=== PATIENT | female | born 1945 ===

== ENCOUNTER → 2017-04-29 | Outpatient (CLI) | payer OTHER ==
[~2017-04-29] MED LIST: PENI-82 PO; [UNRECOGNIZED DRUG - CODE] TD
--- NOTE | 2017-04-29 09:48 | DIAGNOSTIC IMAGING REPORT ---
CHEST 2 VIEWS ROUTINE HISTORY: Short of breath. COMPARISON: None. FINDINGS: The lungs are clear. Cardiac silhouette is normal in size. No pleural effusions. No pneumothorax. IMPRESSION: No acute process. Electronically signed by: Luis Armando Evans M.D. 04/29/2017 9:47 AM Dictated Date/Time: 04/29/2017 9:44 AM
== END | disposition home or self-care (01) ==
LOC: C.RAD1850 09:28
PROVIDERS: ATTEND Internal Medicine Cardiovascular Disease
DX: Z01.810 Encounter for preprocedural cardiovascular examination (principal); Z86.79 Personal history of other diseases of the circulatory system

== ENCOUNTER 2017-08-03 10:33 | Emergency (ER) | payer OTHER ==
[~2017-08-03] VITALS: Ht 165.1 cm; Wt 74.7 kg
[2017-08-03 10:39] VITALS: TEMP 36.5; Ht 165.1 cm; Wt 74.7 kg
[2017-08-03] MEDS ORDERED: DPRSCR45 TOP (11:10)
[2017-08-03] MEDS ORDERED: LEVO75TA5 PO (11:10)
[2017-08-03] MEDS ORDERED: BISM262S7 PO (11:10)
[2017-08-03 12:18] LABS: BASO % 0.2 %; BASO ABS # 0.01 K/uL (0-0.2); EOS % 1.9 %; EOS ABS # 0.12 K/uL (0-0.5); HEMATOCRIT 40.3 % (37-47); HEMOGLOBIN 13.5 g/dL (12.0-16.0); IG# 0.01 K/uL (0.00-0.02); LYMPH % 21.3 %; LYMPH ABS # 1.35 K/uL (1.2-3.4); MEAN CELL VOLUME 90.4 fL (80-100); MEAN CORPUSCULAR HEMOGLOBIN 30.3 pg (25-34); MEAN CORPUSCULAR HGB CONC 33.5 g/dl (32-36); MEAN PLATELET VOLUME 9.6 fL (7.4-10.4); MONO % 7.6 %; MONO ABS # 0.48 K/uL (0.11-0.59); NEUT % 68.8 %; NEUT ABS # 4.37 K/uL (1.4-6.5); PLATELET COUNT 227 K/uL (130-400); RED CELL DISTRIBUTION WIDTH CV 13.3 % (11.5-14.5); WHITE BLOOD COUNT 6.34 K/uL (4.8-10.8)
[2017-08-03 12:47] LABS: ALBUMIN 3.9 gm/dl (3.4-5.0); CALCIUM 9.7 mg/dl (8.5-10.1); CREATININE 0.62 mg/dl (0.60-1.20); TOTAL PROTEIN 7.7 gm/dl (6.4-8.2)
--- NOTE | 2017-08-03 12:47 | EMERGENCY ROOM VISIT NOTE ---
History Report prepared by Aris: Peter Ugalde Under the Supervision of: Dr. Alonso Garcia M.D. First contact with patient: 10:35 Chief Complaint: RECTAL BLEEDING Stated Complaint: RECTAL BLEEDING History of Present Illness The patient is a 72 year old white female with a past medical history of pacemaker placement, pre-diabetes, appendectomy, and inguinal hernia repair who presents to the ED with a cc of persistent rectal bleeding. Patient had a colonoscopy today for her bleeding and was found to have a polyp. She had the polyp clipped at this time. She reports that her colonoscopy was concerning for possible perforation. Negative abdominal pain or nausea. The patient has a pacemaker in place to prevent decreased heart rate due to having a constant heart rate of 70 bpm despite activity. Colonoscopy performed by Dr. Candelario earlier this morning showed 6 mm polyp in sigmoid colon which was removed without complication. 20 mm polyp in rectosigmoid which pedunculated. EBL of 10 mL requiring hemostatic clips. No bleeding at the end of the procedure, but concern for possible perforation. Source of History: patient Position: other (Rectum) Quality: other (bleeding) Timing: other (persistent) Associated Symptoms: No nausea, No abdominal pain Review of Systems See HPI for pertinent positives and negatives. A total of ten systems were reviewed and were otherwise negative. Past Medical & Surgical Medical Problems: (1) Inguinal hernia (2) Pacemaker (3) Pre-diabetes Surgical Problems: (1) S/P appendectomy Family History No pertinent family history stated. Social History Smoking Status: Never Smoker Marital Status: Current/Historical Medications Scheduled Bismuth Subsalicylate (Pepto-Bismol), 1 DOSE PO UD Levothyroxine Sodium (Levothyroxine Sodium), 75 MCG PO DAILY Scheduled PRN Betamethasone Dip (Betamethasone Dipropionat), 1 APPL TOP Q2D PRN for PSORIASIS Allergies Coded Allergies: Triclosan (Unverified Adverse Reaction, Intermediate, HEADACHE, VOMITING, NAUSEA, 08/03/17) Uncoded Allergies: TETANUS DIPTHERIA AND PERTUSSIS VAC (Allergy, Mild, RASH, 12/16/13) ENVIRONMENTAL (Allergy, Unknown, SHORTNESS OF BREATH, 12/16/13) Physical Exam Vital Signs Date Time Temp Pulse Resp B/P (MAP) Pulse Ox O2 Delivery O2 Flow Rate FiO2 08/03/17 13:26 67 08/03/17 10:39 36.5 66 16 117/82 95 Room Air 08/03/17 10:38 67 Physical Exam GENERAL: Awake, alert, well-appearing, NAD HENT: Normocephalic, atraumatic. EYES: Normal conjunctiva. Sclera non-icteric. NECK: Supple. No nuchal rigidity. FROM. RESPIRATORY: CTAB, no rhonchi, wheezing, crackles CARDIAC: RRR, no MRG ABDOMEN: Soft, NTND, BS+ MSK: No chest wall TTP, no LE edema. Device in left chest. NEURO: GCS 15, CN 2-12 intact, moves all 4s on command SKIN: No rash or jaundice noted. Medical Decision & Procedures ER Provider Diagnostic Interpretation: Radiology results as stated below per my review and radiologist interpretation: ABD/PELVIS IV CONTRAST ONLY FINDINGS: Lung bases are clear. Mild fatty infiltration of liver. Liver is uniform in in terms of enhancement characteristics. Kidneys enhance uniformly. No evidence for hydronephrosis. The adrenal glands are normal. Slight increase in mesenteric density most likely of doubtful significance. No significant abdominal pelvic or inguinal adenopathy. Surgical clips in the mid sigmoid region. This is within mildly thickened region of chronic sigmoid diverticulosis. A well-defined mass or extraluminal infiltrative or collection type process is not seen. No evidence for free air or pneumatosis. Normal appendix. IMPRESSION: No acute process of the abdomen or pelvis. Specifically, no evidence for free air, extraluminal collection, or obstruction. The above report was generated using voice recognition software. It may contain grammatical, syntax or spelling errors. Electronically signed by: Alejandro Boudreaux M.D. 08/03/2017 1:17 PM Laboratory Results 08/03/17 11:55 Red Blood Count 4.46, Mean Corpuscular Volume 90.4, Mean Corpuscular Hemoglobin 30.3, Mean Corpuscular Hemoglobin Concent 33.5, Mean Platelet Volume 9.6, Neutrophils (%) (Auto) 68.8, Lymphocytes (%) (Auto) 21.3, Monocytes (%) (Auto) 7.6, Eosinophils (%) (Auto) 1.9, Basophils (%) (Auto) 0.2, Neutrophils # (Auto) 4.37, Lymphocytes # (Auto) 1.35, Monocytes # (Auto) 0.48, Eosinophils # (Auto) 0.12, Basophils # (Auto) 0.01 08/03/17 11:55 08/03/17 12:43 Test 08/03/17 11:55 08/03/17 12:43 08/03/17 13:00 White Blood Count 6.34 K/uL (4.8-10.8) Red Blood Count 4.46 M/uL (4.2-5.4) Hemoglobin 13.5 g/dL (12.0-16.0) Hematocrit 40.3 % (37-47) Mean Corpuscular Volume 90.4 fL (80-100) Mean Corpuscular Hemoglobin 30.3 pg (25-34) Mean Corpuscular Hemoglobin Concent 33.5 g/dl (32-36) Platelet Count 227 K/uL (130-400) Mean Platelet Volume 9.6 fL (7.4-10.4) Neutrophils (%) (Auto) 68.8 % Lymphocytes (%) (Auto) 21.3 % Monocytes (%) (Auto) 7.6 % Eosinophils (%) (Auto) 1.9 % Basophils (%) (Auto) 0.2 % Neutrophils # (Auto) 4.37 K/uL (1.4-6.5) Lymphocytes # (Auto) 1.35 K/uL (1.2-3.4) Monocytes # (Auto) 0.48 K/uL (0.11-0.59) Eosinophils # (Auto) 0.12 K/uL (0-0.5) Basophils # (Auto) 0.01 K/uL (0-0.2) RDW Standard Deviation 44.0 fL (36.4-46.3) RDW Coefficient of Variation 13.3 % (11.5-14.5) Immature Granulocyte % (Auto) 0.2 % Immature Granulocyte # (Auto) 0.01 K/uL (0.00-0.02) Anion Gap 11.0 mmol/L (3-11) Est Creatinine Clear Calc Drug Dose 84.2 ml/min Estimated GFR () 105.1 Estimated GFR (Non- 90.7 BUN/Creatinine Ratio 14.6 (10-20) Calcium Level 9.7 mg/dl (8.5-10.1) Total Bilirubin 0.4 mg/dl (0.2-1) Alanine Aminotransferase (ALT/SGPT) 26 U/L (12-78) Alkaline Phosphatase 64 U/L (45-117) Total Protein 7.7 gm/dl (6.4-8.2) Albumin 3.9 gm/dl (3.4-5.0) Lipase 192 U/L (73-393) Prothrombin Time 11.0 SECONDS (9.0-12.0) Prothromb Time International Ratio 1.0 (0.9-1.1) Activated Partial Thromboplast Time 25.8 SECONDS (21.0-31.0) Partial Thromboplastin Ratio 1.0 Direct Bilirubin < 0.1 mg/dl (0-0.2) Aspartate Amino Transf (AST/SGOT) 12 U/L (15-37) Urine Color YELLOW Urine Appearance CLEAR (CLEAR) Urine pH 5.5 (4.5-7.5) Urine Specific [place] 1.012 (1.000-1.030) Urine Protein NEG (NEG) Urine Glucose (UA) NEG (NEG) Urine Ketones NEG (NEG) Urine Occult Blood NEG (NEG) Urine Nitrite NEG (NEG) Urine Bilirubin NEG (NEG) Urine Urobilinogen NEG (NEG) Urine Leukocyte Esterase NEG (NEG) Laboratory results reviewed by pr ED Course 1055: The patient was evaluated in room B5. A complete history and physical exam was performed. 1452: I reevaluated the patient. Discussed results and discharge instructions: she verbalized understanding and agreement. The patient is ready for discharge. Medical Decision The patient is a 72 year old white female with a past medical history of pacemaker placement, pre-diabetes, appendectomy, and inguinal hernia repair who presents to the ED with a cc of persistent rectal bleeding. Differential diagnosis: Etiologies such as instrumentation related perforation, diverticulosis, AVM, coagulopathy, colitis, inflammatory bowel disease, malignancy, Graciela-Larios tear, esophagitis, peptic ulcer disease, variceal bleed, gastritis, epistaxis, fissure, hemorrhoids, as well as others were entertained. Patient was seen and evaluated the bedside. Patient did have a recent colonoscopy status post polypectomy. There was concern for possible perforation and rectal bleeding. The patient was sent over from the endoscopy Center this morning. Patient does not complain of any abdominal pain, nausea, vomiting. Patient did have blood work completed along with a CT of the abdomen pelvis. Patient's blood counts are unremarkable. Patient has a normal white blood cell count. Patient did have CT the abdomen pelvis is negative for free air, pneumatosis, fluid collection or other acute process of the abdomen. I did discuss this with Dr. Candelario he did come and evaluate the patient. He deemed the patient suitable for outpatient follow-up and treatment. Patient was given strict follow-up instructions and return precautions. Patient agreeable plan of care. Patient was given strict follow-up, discharge, and return precautions. All questions were answered. Patient was deemed suitable for outpatient follow-up at this time. Patient agreed with the plan of care and was safely discharged home. The chart was completed utilizing [employer] voice recognition software. Grammatical errors, random word insertions, pronoun errors, and incomplete sentences are an occasional consequence of this system due to software limitations, ambient noise, and hardware issues. Any formal questions or concerns about the content, text, or information contained within the body of this dictation should be directly addressed to the physician for clarification. Medication Reconcilliation Current Medication List: was personally reviewed by me Blood Pressure Screening Patient's blood pressure: Normal blood pressure Blood pressure disposition: Did not require urgent referral Consults Time Called: 1338 Consulting Physician: Dr. Candelario - GI Returned Call: [phone] Discussed the patient's case. Dr. Candelario will evaluate the patient. 1350: I discussed the patient's case with Dr. Candelario. He feels that the patient would be safe for discharge with close outpatient follow up. Impression Primary Impression: S/P colonoscopic polypectomy Scribe Attestation The scribe's documentation has been prepared under my direction and personally reviewed by me in its entirety. I confirm that the note above accurately reflects all work, treatment, procedures, and medical decision making performed by me. Departure Information Dispostion Home / Self-Care Referrals Yaya Jc M.D. (PCP) Patient Instructions Colonoscopy, My [facility] Additional Instructions Please return to the emergency department if you have worsening or recurrent symptoms not amenable to at-home treatment. Please call for a follow-up appointment with her primary care physician. Please take your medications as prescribed. If you have other concerns and/or complaints please feel free to also call your primary care physician's office or return the ED for further evaluation, management, and treatment. Please follow the instructions of your change management manager. Please follow-up with your change management manager as scheduled. Take your medications as prescribed. You have been examined and treated today on an emergency basis only. This is not a substitute for, or an effort to provide, complete comprehensive medical care. It is impossible to recognize and treat all injuries or illnesses in a single emergency department visit. It is therefore important that you follow up closely with [facility], your PCP, and/or your specialist(s). Call as soon as possible for an appointment. Thank you for your time and consideration. I look forward to speaking with you again soon. Please don't hesitate to call us if you have any questions.
[2017-08-03 13:11] LABS: PTT PATIENT 25.8 SECONDS (21.0-31.0)
[2017-08-03 13:14] LABS: POTASSIUM 3.8 mmol/L (3.5-5.1)
--- NOTE | 2017-08-03 13:18 | DIAGNOSTIC IMAGING REPORT ---
ABD/PELVIS IV CONTRAST ONLY CT DOSE: 544.90 mGy.cm HISTORY: Postprocedural pain. Bleeding. had colonoscopy w/ polyp removal this AM, r/o perf TECHNIQUE: Multiaxial CT images of the abdomen and pelvis were performed following the use of intravenous contrast. A dose lowering technique was utilized adhering to the principles of ALARA. COMPARISON STUDY: None. FINDINGS: Lung bases are clear. Mild fatty infiltration of liver. Liver is uniform in in terms of enhancement characteristics. Kidneys enhance uniformly. No evidence for hydronephrosis. The adrenal glands are normal. Slight increase in mesenteric density most likely of doubtful significance. No significant abdominal pelvic or inguinal adenopathy. Surgical clips in the mid sigmoid region. This is within mildly thickened region of chronic sigmoid diverticulosis. A well-defined mass or extraluminal infiltrative or collection type process is not seen. No evidence for free air or pneumatosis. Normal appendix. IMPRESSION: No acute process of the abdomen or pelvis. Specifically, no evidence for free air, extraluminal collection, or obstruction. The above report was generated using voice recognition software. It may contain grammatical, syntax or spelling errors. Electronically signed by: Alejandro Boudreaux M.D. 08/03/2017 1:17 PM Dictated Date/Time: 08/03/2017 1:13 PM
[2017-08-03 13:19] LABS: AST/SGOT 12 U/L (15-37)
[2017-08-03 14:00] VITALS: BP 152/80; PULSE 65; O2SAT 96
== END 2017-08-03 14:00 | disposition home or self-care (01) ==
LOC: EDBD 10:33 → C.EDB 10:34
DX: K62.5 Hemorrhage of anus and rectum (principal); Z98.890 Other specified postprocedural states; Z95.0 Presence of cardiac pacemaker; Z79.899 Other long term (current) drug therapy